=== PATIENT | female | born 1970 | race Caucasian/White ===

== ENCOUNTER → 2019-03-21 11:46 | Outpatient (CLI) | payer SELFPAY | END | disposition home or self-care (01) | LOC: D.US 11:30 | PROVIDERS: ATTEND Nurse Practitioner Family | DX: R16.0 Hepatomegaly, not elsewhere classified (principal); E04.1 Nontoxic single thyroid nodule ==

== ENCOUNTER 2019-04-25 09:47 | Outpatient (CLI) | payer MEDICAID ==
[~2019-04-25] VITALS: Ht 162.6 cm; Wt 53.6 kg
[2019-04-25 10:46] VITALS: BP 102/62; Ht 162.6 cm; Wt 53.6 kg
== END 2019-04-25 12:05 | disposition home or self-care (01) ==
LOC: D.OPS 09:47
PROVIDERS: ATTEND Internal Medicine Hematology & Oncology
DX: D50.9 Iron deficiency anemia, unspecified (principal)

== ENCOUNTER 2019-05-02 09:49 | Outpatient (CLI) | payer MEDICAID ==
[~2019-05-02] VITALS: Ht 162.6 cm; Wt 52.7 kg
[2019-05-02 11:01] VITALS: Ht 162.6 cm; Wt 52.7 kg
== END 2019-05-02 13:05 | disposition home or self-care (01) ==
LOC: D.OPS 09:49
PROVIDERS: ATTEND Internal Medicine Hematology & Oncology
DX: D64.9 Anemia, unspecified (principal)

== ENCOUNTER → 2019-05-05 09:47 | Outpatient (CLI) | payer MEDICAID ==
[2019-05-02 11:01] VITALS: BMI 19.9
--- NOTE | 2019-05-13 09:52 | EC ---
PATIENT:THERESA SCALES DATE OF SERVICE: 05/05/19 SEX: F MEDICAL RECORD: [id number] DATE OF : [birth year] LOCATION:D[facility] AGE OF PATIENT: 48 ADMISSION DATE: 05/05/19 REFERRING PHYSICIAN: INTERPRETING PHYSICIAN: COTY ADAM MD ECHOCARDIOGRAM REPORT ECHO CHARGES 4 ECHO COMPLETE Date: 05/05/19 CLINICAL DIAGNOSIS: CP ECHOCARDIOGRAPHIC MEASUREMENTS (adult normal given) AC root (d.<3.7cm) 2.1 cm LV Septum d (<1.2 cm> 0.8 cm Valve Excursion 1.4 cm LV Septum (systole) 1.2 cm Left Atria (s.<4.0cm> 2.6 cm LVPW d(<1.2cm) 0.9 cm RV (d.<2.3cm) 2.2 cm LVPW (sytole) 1.1 cm LV diastole(<5.6CM) 3.5 cm MV E-F(>70mm/sec) cm LV systole 3.0 cm LVOT Diameter 1.6 cm MV exc.(>10mm) cm Est.ejection fraction (50-75%) % DOPPLER: LVIT cm/sec A 59 cm/sec E 76 cm/sec LA cm/sec RVSP 28.7 mmHg LVOT 93 cm/sec AOP1/2T m/s Asc. Ao 142 cm/sec RVOT 67 cm/sec RA cm/sec PA 106 cm/sec AV Gradient Peak 8.1 mmHg AV Mean 4.7 mmHg AV Area 1.3 cm MV Gradient Peak 3.7 mmHg MV Mean 2.1 mmHg MV Area cm COMMENTS: Poultry Slaughterer: [facility] Programming Coordinator: 1 Dr. Adam TAPE# PACS Pericardial Effusion N DATE OF SERVICE: 05/05/2019 FINDINGS: 1. Left ventricular chamber size is within normal limits. Left ventricular systolic function is normal. Overall ejection fraction is estimated at 60%. 2. Left atrium, right atrium, and right ventricular chamber sizes are within normal limit. 3. Valvular structures have normal structure and motion. 4. Doppler interrogation reveals mild aortic insufficiency, trace mitral regurgitation, and trace tricuspid regurgitation. No other valvular ECHOCARDIOGRAM REPORT [id number] THERESA SCALES insufficiency or stenosis. Pulmonary systolic pressure is estimated at 29 mmHg. 5. No evidence of pericardial effusion or left ventricular thrombus. TRANSINT:[id number] Voice Confirmation ID: [id number] DOCUMENT ID: [id number] COTY ADAM MD at 0952 CC: [id number] DICTATION DATE: 05/05/19 1559 DRY PAN OPERATOR: 05/05/19 1756 DEP CLI 05/05/19 [facility] [address] [id number]
== END | disposition home or self-care (01) ==
LOC: D.ECHO 09:30
PROVIDERS: ATTEND Family Medicine
DX: R07.9 Chest pain, unspecified (principal)

== ENCOUNTER → 2019-05-09 10:00 | Outpatient (CLI) | payer MEDICAID ==
[2019-05-02 11:01] VITALS: BMI 19.9
== END | disposition home or self-care (01) ==
LOC: D.CT 10:00
PROVIDERS: ATTEND Urology
DX: R63.4 Abnormal weight loss (principal); N39.0 Urinary tract infection, site not specified

== ENCOUNTER → 2019-05-09 18:36 | Outpatient (CLI) | payer MEDICAID ==
[2019-05-02 11:01] VITALS: BMI 19.9
== END | disposition home or self-care (01) ==
LOC: D.LABREF 18:36
PROVIDERS: ATTEND Urology
DX: N39.0 Urinary tract infection, site not specified (principal)

== ENCOUNTER 2019-05-16 09:48 | Outpatient (CLI) | payer MEDICAID ==
[~2019-05-16] VITALS: Ht 162.6 cm; Wt 51.8 kg
[2019-05-16 10:09] VITALS: BP 102/65; Ht 162.6 cm; Wt 51.8 kg
== END 2019-05-16 11:40 | disposition home or self-care (01) ==
LOC: D.OPS 09:48
PROVIDERS: ATTEND Internal Medicine Hematology & Oncology
DX: D64.9 Anemia, unspecified (principal)

== ENCOUNTER 2019-05-23 09:55 | Outpatient (CLI) | payer MEDICAID ==
[2019-05-16 10:09] VITALS: BMI 19.6
== END 2019-05-23 11:55 | disposition home or self-care (01) ==
LOC: D.OPS 09:55
PROVIDERS: ATTEND Internal Medicine Hematology & Oncology
DX: D64.9 Anemia, unspecified (principal)

== ENCOUNTER 2019-05-30 09:44 | Outpatient (CLI) | payer MEDICAID ==
[~2019-05-30] VITALS: Ht 162.6 cm; Wt 51.8 kg
[2019-05-30 10:50] VITALS: BP 100/72; Ht 162.6 cm; Wt 51.8 kg
== END 2019-05-30 12:45 | disposition home or self-care (01) ==
LOC: D.OPS 09:44
PROVIDERS: ATTEND Internal Medicine Hematology & Oncology
DX: D50.9 Iron deficiency anemia, unspecified (principal)

== ENCOUNTER 2019-06-06 09:36 | Outpatient (CLI) | payer MEDICAID ==
[~2019-06-06] VITALS: Ht 162.6 cm; Wt 49.5 kg
[2019-06-06 09:55] VITALS: BP 105/64; Ht 162.6 cm; Wt 49.5 kg
== END 2019-06-06 12:07 | disposition home or self-care (01) ==
LOC: D.OPS 09:36
PROVIDERS: ATTEND Internal Medicine Hematology & Oncology
DX: D64.9 Anemia, unspecified (principal)

== ENCOUNTER 2019-06-13 09:39 | Outpatient (CLI) | payer MEDICAID ==
[~2019-06-13] VITALS: Ht 162.6 cm; Wt 49.5 kg
[2019-06-13 10:45] VITALS: Ht 162.6 cm; Wt 49.5 kg
== END 2019-06-13 12:36 | disposition home or self-care (01) ==
LOC: D.OPS 09:39
PROVIDERS: ATTEND Internal Medicine Hematology & Oncology
DX: D50.9 Iron deficiency anemia, unspecified (principal)

== ENCOUNTER 2019-06-20 09:38 | Outpatient (CLI) | payer MEDICAID ==
[~2019-06-20] VITALS: Ht 162.6 cm; Wt 48.2 kg
[2019-06-20] MEDS ORDERED: LOVASTATIN20 MG PO (10:17)
[2019-06-20] MEDS ORDERED: PROZAC20 MG PO (10:18)
[2019-06-20] MEDS ORDERED: COLACE100 MG PO (10:18)
[2019-06-20] MEDS ORDERED: TOPAMAX50 MG PO (10:18)
[2019-06-20] MEDS ORDERED: CLARITIN 10 MG10 MG PO (10:18)
[2019-06-20 10:23] VITALS: BP 116/65; Ht 162.6 cm; Wt 48.2 kg
== END 2019-06-20 12:47 ==
LOC: D.OPS 09:38
PROVIDERS: ATTEND Internal Medicine Hematology & Oncology
DX: D64.9 Anemia, unspecified (principal)